=== PATIENT | female | born 1930 | race African-American/Black ===

== ENCOUNTER → 2017-06-08 | Outpatient (CLI) | payer MEDICARE ==
[2015-11-10 17:45] VITALS: BP 115/61
[~2017-06-08] MED LIST: ALPR0.25 PO; ALPR0.254 PO; ASPI-482 PO; BUTA1CAP57 PO; FERR-26 PO; FURO-68 PO; FURO40TA4 PO; GABA-586 PO; LORA10TA68 PO; MELO15TA6 PO; OMEP40CA5 PO; OXYC-323 PO; PANT40TA3 PO; PANT40TA5 PO; POTASSIUM CHLO10 MEQ PO; ROPI1TAB PO; SPIR1TAB PO; SPIR25TA3 PO; TRAM50TA PO; WARF-78 PO
--- NOTE | 2017-06-08 13:18 | RAD ---
DATE: 06/08/2017 EXAM: DIGITAL SCREEN BILAT W/CAD HISTORY: Screening Mammogram COMPARISON: Multiple prior examinations including 06/01/2016, 05/24/2015, 01/31/2013, 03/08/2012 This study was interpreted with the benefit of Computerized Aided Detection (CAD). The breast parenchyma shows scattered fibroglandular densities. Breast parenchyma level B. FINDINGS: Bilateral digital 2-D CC and MLO views. No suspicious mass, calcification or architectural distortion. No significant change from prior examination IMPRESSION: No mammographic evidence of malignancy. Recommend routine screening mammogram in 12 months. BI-RADS CATEGORY: 1 NEGATIVE RECOMMENDED FOLLOW-UP: 12M 12 MONTH FOLLOW-UP PQRS compliance statement: Patient information was entered into a reminder system with a target due date May 2018 for the next mammogram. Mammography is a sensitive method for finding small breast cancers, but it does not detect them all and is not a substitute for careful clinical examination. A negative mammogram does not negate a clinically suspicious finding and should not result in delay in biopsying a clinically suspicious abnormality. "Our facility is accredited by the [employer] Mammography Program."
== END | disposition home or self-care (01) ==
LOC: MAMMO 12:31
PROVIDERS: ATTEND Internal Medicine
DX: Z12.31 Encounter for screening mammogram for malignant neoplasm of breast (principal)
CPT/HCPCS: G0202; 77067

== ENCOUNTER → 2017-08-06 | Outpatient (CLI) | payer MEDICARE | END | disposition home or self-care (01) | LOC: US 16:03 | DX: M79.662 Pain in left lower leg (principal) | CPT/HCPCS: 93926 ==

== ENCOUNTER → 2017-11-26 | Outpatient (CLI) | payer MEDICARE | END | disposition home or self-care (01) | LOC: US 10:46 | DX: K76.89 Other specified diseases of liver (principal); I10 Essential (primary) hypertension | CPT/HCPCS: 76700 ==

== ENCOUNTER 2018-07-27 10:29 | Emergency (ER) | payer MEDICARE ==
[~2018-07-27] VITALS: Ht 165.1 cm; Wt 77.6 kg
[~2018-07-27 10:29] MED LIST changes: -FERR-26 PO; +FERR325T14 PO; -GABA-586 PO; +GABA300C18 PO; -OXYC-323 PO; +OXYC1TAB15 PO; +POTA10TA12 PO; -POTASSIUM CHLO10 MEQ PO; -SPIR25TA3 PO; +SPIR25TA5 PO
[2018-07-27 11:59] LABS: ALBUMIN 3.2 g/dL (3.4-5.0); ALBUMIN/GLOBULIN RATIO 0.7 (1.0-1.7); CALCIUM 9.1 mg/dL (8.5-10.1); CREATININE 1.3 mg/dL (0.6-1.0); GFR 47.1; TOTAL BILIRUBIN 0.9 mg/dL (0.2-1.0); TOTAL PROTEIN 7.6 g/dL (6.4-8.2)
[2018-07-27 12:00] LABS: BASO # 0.1 x10^3/uL (0.0-0.2); BASO % 1 % (0-3); EOS # 0.1 x10^3/uL (0.0-0.7); EOS % 1 % (0-3); HEMATOCRIT 32.8 % (36.0-47.0); HEMOGLOBIN 10.9 g/dL (12.0-15.5); LYMPH # 1.3 x10^3/uL (1.0-4.8); LYMPH % 12 % (24-48); MEAN CORPUSCULAR HEMOGLOBIN 24 pg (25-35); MEAN CORPUSCULAR HGB CONC 33 g/dL (31-37); MEAN CORPUSCULAR VOLUME 72 fL (79-100); MONO # 1.4 x10^3/uL (0.0-1.1); MONO % 14 % (0-9); NEUT # 7.8 x10^3uL (1.8-7.7); NEUT % 73 % (31-73); PLATELET COUNT 282 x10^3/uL (140-400); RED BLOOD COUNT 4.58 x10^6/uL (3.50-5.40); WHITE BLOOD COUNT 10.7 x10^3/uL (4.0-11.0)
--- NOTE | 2018-07-27 12:58 | RAD ---
CT HEAD AND CERVICAL SPINE WO Indication: head and neck pain, prior sent, no known injury Exposure: One or more of the following individualized dose reduction techniques were utilized for this examination: 1. Automated exposure control 2. Adjustment of the mA and/or kV according to patient size 3. Use of iterative reconstruction technique. Comparison: Images are available from a head CT of June 19, 2011 Contrast: None HEAD: Posterior fossa is unremarkable. No evidence of acute intracranial hemorrhage or abnormal extra-axial fluid collection. No evidence of mass effect or midline shift. Ventricles are symmetric in size and configuration. Horne-white matter distinction is intact. Visualized orbits are unremarkable. Visualized paranasal sinuses and mastoids are clear. No acute calvarial abnormality. Impression:Negative for acute intracranial hemorrhage or mass effect. CERVICAL SPINE: C1 ring: Intact Cervico-occipital junction: Intact C1-C2 relationship: Within normal limits Severe degenerative spondylosis with complete loss of intervertebral disc spaces and posterior osteophytes and spurring. There is bilateral neural foraminal stenosis at multiple levels. There is at least mild spinal canal narrowing greatest at C3-C4. No evidence of a definite acute fracture but detection could be limited by the severe degenerative changes. No evidence of facet joint displacement. No evidence of traumatic subluxation. Prevertebral soft tissues: No significant swelling or hematoma Thyroid: Heterogeneous. Lung apices: Clear Impression: Severe degenerative spondylosis with stenosis. No definite acute fracture, but detection could be made difficult by the background degenerative changes. Electronically signed by: José Antonio Goins MD (07/27/2018 12:54 PM) [facility]
[2018-07-27 13:12] LABS: BILIRUBIN,URINE NEGATIVE (NEG); CLARITY,URINE CLEAR; COLOR,URINE YELLOW; NITRITE,URINE NEGATIVE (NEG); PH,URINE 6.5; PROTEIN,URINE NEGATIVE (NEG-TRACE)
[2018-07-27 13:25] LABS: HYALINE CASTS, URINE MODERATE /HPF
[2018-07-27 13:26] LABS: AMORPHOUS SEDIMENT,UR PRESENT /HPF; BACTERIA,URINE 0 /HPF (0-FEW); RBC,URINE 20-40 /HPF (0-2); SQUAMOUS EPITHELIAL CELL,UR MOD /LPF; WBC,URINE 0 /HPF (0-4)
--- NOTE | 2018-07-27 13:52 | PHYS DOC ---
Past Medical History Past Medical History: Arthritis, Hypertension Past Surgical History: Hysterectomy Additional Past Surgical Histo: HERNIA REPAIR Adult General Chief Complaint Chief Complaint: SHOUDLER HPI HPI Patient is a 87 year old [f__sex] who presents with [] Review of Systems Review of Systems Constitutional: Denies fever or chills [] Eyes: Denies change in visual acuity, redness, or eye pain [] HENT: Denies nasal congestion or sore throat [] Respiratory: Denies cough or shortness of breath [] Cardiovascular: No additional information not addressed in HPI [] GI: Denies abdominal pain, nausea, vomiting, bloody stools or diarrhea [] : Denies dysuria or hematuria [] Musculoskeletal: Denies back pain or joint pain [] Integument: Denies rash or skin lesions [] Neurologic: Denies headache, focal weakness or sensory changes [] Endocrine: Denies polyuria or polydipsia [] All other systems were reviewed and found to be within normal limits, except as documented in this note. Current Medications Current Medications Current Medications Medications (Trade) Dose Ordered Sig/Ambrosoi Start Time Stop Time Status Last Admin Dose Admin Potassium Chloride (Klor-Con) 40 meq 1X ONCE 07/27/18 14:15 07/27/18 14:16 DC 07/27/18 14:33 40 MEQ Allergies Allergies Allergies Coded Allergies Type Severity Reaction Last Updated Verified Penicillins Allergy Intermediate 11/12/15 Yes Sulfa (Sulfonamide Antibiotics) Allergy Intermediate 11/12/15 Yes aspirin Allergy Intermediate 11/12/15 Yes chlorhexidine Adverse Reaction Severe Rash 11/12/15 Yes Physical Exam Physical Exam Constitutional: Well developed, well nourished, no acute distress, non-toxic appearance. [] HENT: Normocephalic, atraumatic, bilateral external ears normal, oropharynx moist, no oral exudates, nose normal. [] Eyes: PERRLA, EOMI, conjunctiva normal, no discharge. [] Neck: Normal range of motion, no tenderness, supple, no stridor. [] Cardiovascular:Heart rate regular rhythm, no murmur [] Lungs & Thorax: Bilateral breath sounds clear to auscultation [] Abdomen: Bowel sounds normal, soft, no tenderness, no masses, no pulsatile masses. [] Skin: Warm, dry, no erythema, no rash. [] Back: No tenderness, no CVA tenderness. [] Extremities: No tenderness, no cyanosis, no clubbing, ROM intact, no edema. [] Neurologic: Alert and oriented X 3, normal motor function, normal sensory function, no focal deficits noted. [] Psychologic: Affect normal, judgement normal, mood normal. [] Current Patient Data Vital Signs Vital Signs Date Time Temp Pulse Resp B/P (MAP) Pulse Ox O2 Delivery O2 Flow Rate FiO2 07/27/18 11:38 73 149/69 (95) 99 Room Air 07/27/18 10:45 99.0 18 99.0 Lab Values Laboratory Tests Test 07/27/18 11:36 07/27/18 13:00 White Blood Count 10.7 x10^3/uL (4.0-11.0) Red Blood Count 4.58 x10^6/uL (3.50-5.40) Hemoglobin 10.9 g/dL (12.0-15.5) L Hematocrit 32.8 % (36.0-47.0) L Mean Corpuscular Volume 72 fL (79-100) L Mean Corpuscular Hemoglobin 24 pg (25-35) L Mean Corpuscular Hemoglobin Concent 33 g/dL (31-37) Red Cell Distribution Width 15.0 % (11.5-14.5) H Platelet Count 282 x10^3/uL (140-400) Neutrophils (%) (Auto) 73 % (31-73) Lymphocytes (%) (Auto) 12 % (24-48) L Monocytes (%) (Auto) 14 % (0-9) H Eosinophils (%) (Auto) 1 % (0-3) Basophils (%) (Auto) 1 % (0-3) Neutrophils # (Auto) 7.8 x10^3uL (1.8-7.7) H Lymphocytes # (Auto) 1.3 x10^3/uL (1.0-4.8) Monocytes # (Auto) 1.4 x10^3/uL (0.0-1.1) H Eosinophils # (Auto) 0.1 x10^3/uL (0.0-0.7) Basophils # (Auto) 0.1 x10^3/uL (0.0-0.2) Platelet Estimate Adequate (ADEQUATE) Hypochromasia Present Microcytosis Present Sodium Level 137 mmol/L (136-145) Potassium Level 3.0 mmol/L (3.5-5.1) L Chloride Level 94 mmol/L (98-107) L Carbon Dioxide Level 36 mmol/L (21-32) H Anion Gap 7 (6-14) Blood Urea Nitrogen 15 mg/dL (7-20) Creatinine 1.3 mg/dL (0.6-1.0) H Estimated GFR (Cockcroft-Gault) 47.1 BUN/Creatinine Ratio 12 (6-20) Glucose Level 114 mg/dL (70-99) H Calcium Level 9.1 mg/dL (8.5-10.1) Total Bilirubin 0.9 mg/dL (0.2-1.0) Aspartate Amino Transferase (AST) 17 U/L (15-37) Alanine Aminotransferase (ALT) 9 U/L (14-59) L Alkaline Phosphatase 68 U/L (46-116) Total Protein 7.6 g/dL (6.4-8.2) Albumin 3.2 g/dL (3.4-5.0) L Albumin/Globulin Ratio 0.7 (1.0-1.7) L Urine Collection Type U cath Urine Color Yellow Urine Clarity Clear Urine pH 6.5 Urine Specific [place] 1.020 Urine Protein Negative mg/dL (NEG-TRACE) Urine Glucose (UA) Negative mg/dL (NEG) Urine Ketones (Stick) Negative mg/dL (NEG) Urine Blood Moderate (NEG) Urine Nitrite Negative (NEG) Urine Bilirubin Negative (NEG) Urine Urobilinogen Dipstick 1.0 mg/dL (0.2 mg/dL) Urine Leukocyte Esterase Negative (NEG) Urine RBC 20-40 /HPF (0-2) Urine WBC 0 /HPF (0-4) Urine Squamous Epithelial Cells Mod /LPF Urine Amorphous Sediment Present /HPF Urine Bacteria 0 /HPF (0-FEW) Urine Hyaline Casts Moderate /HPF Urine Mucus Marked /LPF Laboratory Tests 07/27/18 11:36 Laboratory Tests 07/27/18 11:36 EKG EKG [] Radiology/Procedures Radiology/Procedures []PATIENT: ALEX PERSAUDOUNT: [id number]#: [id number] : 1930 LOCATION: ER AGE: 87 SEX: F EXAM STATUS: REG ER ORD. PHYSICIAN: PHILLY VIZCARRA APRN REASON: neck pain, headaches, parasthesias PROCEDURE: CT HEAD AND CERVICAL SPINE WO CT HEAD AND CERVICAL SPINE WO Indication: head and neck pain, prior sent, no known injury Exposure: One or more of the following individualized dose reduction techniques were utilized for this examination: 1. Automated exposure control 2. Adjustment of the mA and/or kV according to patient size 3. Use of iterative reconstruction technique. Comparison: Images are available from a head CT of June 19, 2011 Contrast: None HEAD: Posterior fossa is unremarkable. No evidence of acute intracranial hemorrhage or abnormal extra-axial fluid collection. No evidence of mass effect or midline shift. Ventricles are symmetric in size and configuration. Horne-white matter distinction is intact. Visualized orbits are unremarkable. Visualized paranasal sinuses and mastoids are clear. No acute calvarial abnormality. Impression:Negative for acute intracranial hemorrhage or mass effect. CERVICAL SPINE: C1 ring: Intact Cervico-occipital junction: Intact C1-C2 relationship: Within normal limits Severe degenerative spondylosis with complete loss of intervertebral disc spaces and posterior osteophytes and spurring. There is bilateral neural foraminal stenosis at multiple levels. There is at least mild spinal canal narrowing greatest at C3-C4. No evidence of a definite acute fracture but detection could be limited by the severe degenerative changes. No evidence of facet joint displacement. No evidence of traumatic subluxation. Prevertebral soft tissues: No significant swelling or hematoma Thyroid: Heterogeneous. Lung apices: Clear Impression: Severe degenerative spondylosis with stenosis. No definite acute fracture, but detection could be made difficult by the background degenerative changes. Electronically signed by: José Antonio Goins MD (07/27/2018 12:54 PM) [facility] DICTATED and SIGNED BY: JOSÉ ANTONIO GOINS MD DATE: 07/27/18 1247 Course & Med Decision Making Course & Med Decision Making Pertinent Labs and Imaging studies reviewed. (See chart for details) [] Dragon Disclaimer Dragon Disclaimer This electronic medical record was generated, in whole or in part, using a voice recognition dictation system. Departure Departure Impression: Primary Impression: Muscle strain Disposition: 01 HOME, SELF-CARE Condition: STABLE Referrals: ZACHARIAH GUTHRIE MD (PCP) Patient Instructions: Muscle Strain Additional Instructions: Take the medication as prescribed. Do not drive or operate heavy machinery while taking this medication. This medication might make you very drowsy. Follow -up with your primary care provider for recheck in 3 days if not improving or return to the emergency department immediately if worsening. Scripts Hydrocodone/Apap 5-325 (NORCO 5-325 TABLET) 1 Each Tablet 1 TAB PO PRN Q6HRS PRN for PAIN, #14 TAB 0 Refills Prov: PHILLY VIZCARRA APRN 07/27/18 Cyclobenzaprine Hcl (CYCLOBENZAPRINE HCL) 5 Mg Tablet 1 TAB PO QHS for muscle spasms, #30 TAB Prov: PHILLY VIZCARRA APRN 07/27/18 PHILLY VIZCARRA APRN Jul 27, 2018 13:52
[2018-07-27 13:54] LABS: PLT ESTIMATE ADEQUATE (ADEQUATE)
[2018-07-27 13:55] LABS: HYPOCHROMIA PRESENT; MICROCYTOSIS PRESENT
[2018-07-27] MEDS ORDERED: POTASSIUM CHLORIDE 20 MEQ TABLET.ER. PO ONE (14:15)
[2018-07-27] MEDS ORDERED: HYDR-3164 PO (14:58)
[2018-07-27] MEDS ORDERED: CYCL5TAB PO (14:58)
[2018-07-27 15:00] VITALS: BP 142/64
== END 2018-07-27 15:17 | disposition home or self-care (01) ==
LOC: ER 10:29
DX: S16.1XXA Strain of muscle, fascia and tendon at neck level, initial encounter (principal); R20.2 Paresthesia of skin; I10 Essential (primary) hypertension; R51 Headache; M25.511 Pain in right shoulder; M25.512 Pain in left shoulder; Z88.0 Allergy status to penicillin; Z88.2 Allergy status to sulfonamides; Z88.6 Allergy status to analgesic agent; Z88.8 Allergy status to other drugs, medicaments and biological substances; X58.XXXA Exposure to other specified factors, initial encounter; Y93.89 Activity, other specified; Y92.89 Other specified places as the place of occurrence of the external cause; Y99.8 Other external cause status
CPT/HCPCS: 36415; 70450; 72125; 80053; 81001; 85025; 99284-25

== ENCOUNTER → 2019-05-26 | Day surgery (SDC) | payer MEDICARE ==
[~2019-05-26] MED LIST changes: +CYCL5TAB PO; +HYDR-3164 PO; +IV RINGERS,LACTATED 1000ML 1,000 ML IV ONE; +OMEP40CA45 PO; -OMEP40CA5 PO; -PANT40TA3 PO; -PANT40TA5 PO; +PANT40TA77 PO; +PROPOFOL 20 ML IV ONE
--- NOTE | 2019-05-26 14:25 | PDOC4 ---
PROCEDURE Procedure EGD/biopsies Indication: dyspepsia Meds: per anesthesia Findings: E--Grade A eitis at 34cm. G--Linear erythema, antrum. Biopsies taken. D--normal to second portion. Candice. well. IMP: GERD non-specific antral erythema REC; Trial of PPI. Await biopsies F/u with me in 2 weeks. Resume other meds, diet. JAZMIN JORGENSEN MD May 26, 2019 14:25
[2019-05-26 14:49] VITALS: BP 146/82
--- NOTE | 2019-05-27 16:06 | PATHOLOGY ---
[facility] Accession Number: [id number] . 01 Material submitted: . stomach - ANTRUM BX . 01 Clinical history: . Abdominal pain . 02 Diagnosis: Antrum, biopsy: - Mild chronic inactive gastritis. - An Helicobacter pylori immunoperoxidase stain is negative (A1; appropriate control) (MAP:[facility] 05/27/2019) [facility] 05/27/2019 1319 Local . 02 Electronically signed: . José Antonio Veloz MD, Pathologist NPI- [id number] . 01 Gross description: . Received in formalin labeled "Brown, Silva, antrum BX," are 2 segments of mayo soft tissue measuring 1.2 x 0.3 x 0.2 cm in aggregate dimensions and ranging from 0.6 to 0.7 cm in maximum dimension. The specimen is submitted entirely in cassette A1. (TSD; 05/26/2019) TOB/TOB 05/26/2019 2050 Local . 02 Pathologist provided ICD-10: K29.50 . 02 CPT . 607663, F33639 Specimen Comment: A courtesy copy of this report has been sent to [phone], [phone] Specimen Comment: [id number] Specimen Comment: Report sent to / DR GUTHRIE Performed at: 01 [facility] [address], [place], [place] [id number] MD Ozzie Matthew MD Phone: [phone] Performed at: 02 [facility] [address] [place], [place] [id number] MD Jimmy Bello MD Phone: [phone]
== END ==
LOC: ENDOS 13:17
PROVIDERS: ATTEND Internal Medicine Gastroenterology
DX: R10.13 Epigastric pain (principal); K29.50 Unspecified chronic gastritis without bleeding; K21.0 Gastro-esophageal reflux disease with esophagitis; F41.9 Anxiety disorder, unspecified; I10 Essential (primary) hypertension; D64.9 Anemia, unspecified; Z88.6 Allergy status to analgesic agent; Z88.1 Allergy status to other antibiotic agents; Z88.0 Allergy status to penicillin; Z88.8 Allergy status to other drugs, medicaments and biological substances; Z86.010 Personal history of colon polyps; Z90.710 Acquired absence of both cervix and uterus; Z96.653 Presence of artificial knee joint, bilateral
CPT/HCPCS: 43239; 88305; 88342; J2704

== ENCOUNTER 2019-05-27 11:16 | Emergency (ER) | payer MEDICARE ==
[~2019-05-27] VITALS: Ht 165.1 cm; Wt 76.2 kg
[~2019-05-27 11:16] MED LIST changes: -IV RINGERS,LACTATED 1000ML 1,000 ML IV ONE; -PROPOFOL 20 ML IV ONE
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
--- NOTE | 2019-05-27 12:14 | RAD ---
CT HEAD WO CONTRAST History: Trauma. Pain. Comparison: July 27, 2018 Technique: Noncontrast CT imaging was performed of the head. Exposure: One or more of the following individualized dose reduction techniques were utilized for this examination: 1. Automated exposure control 2. Adjustment of the mA and/or kV according to patient size 3. Use of iterative reconstruction technique. Findings: No intracranial hemorrhage. No mass effect. No hydrocephalus. Extra-axial spaces are unremarkable. Anterior scalp soft tissue swelling and hematoma. Right posterior scalp lipoma, unchanged. Imaged orbits are unremarkable. Imaged paranasal sinuses and mastoid air cells are clear. No acute calvarial fracture. C1-C2 degenerative changes with posterior pannus formation contributing to narrowing at the cervical medullary junction, unchanged. Impression: 1. No acute intracranial abnormality. 2. Anterior scalp soft tissue swelling and hematoma. Electronically signed by: Lorenzo Echeverria DO (05/27/2019 12:11 PM) [id number]
[2019-05-27 12:29] VITALS: BP 160/76
== END 2019-05-27 12:41 | disposition home or self-care (01) ==
LOC: ER 11:16
DX: S00.83XA Contusion of other part of head, initial encounter (principal); W06.XXXA Fall from bed, initial encounter; Y93.89 Activity, other specified; Y92.89 Other specified places as the place of occurrence of the external cause; Y99.8 Other external cause status
CPT/HCPCS: 70450; 99284-25

== ENCOUNTER → 2020-01-29 | Outpatient (CLI) | payer MEDICARE ==
[~2020-01-29] MED LIST changes: -WARF-78 PO; +WARF5TAB2 PO
--- NOTE | 2020-01-29 10:58 | RAD ---
EXAM: CT ABDOMEN/PELVIS WITHOUT CONTRAST. HISTORY: Left abdominal pain. TECHNIQUE: Computed tomography of the abdomen and pelvis was performed without intravenous contrast. One or more of the following individualized dose reduction techniques were utilized for this examination: 1. Automated exposure control. 2. Adjustment of the mA and/or kV according to patient size. 3. Use of iterative reconstruction technique. COMPARISON: 03/30/2014. FINDINGS: Lung windows through the visualized portions of the bases reveal aortic valve and coronary calcifications. Bone windows reveal no suspicious lesions. There is grade 1 anterolisthesis at L4-5 from facet osteoarthritis. Central canal stenosis appears moderate at this level. Small hypoattenuating hepatic lesions are stable chronically and likely reflect cysts. One in segment IVb measures 1.5 x 1.3 cm. There are calcified granulomas in the liver and spleen. The pancreas, adrenal glands and gallbladder are unremarkable. Tiny hyperattenuating nodules within the kidneys measure up to 6 mm posteriorly on the left. These likely reflect proteinaceous/hemorrhagic cysts and have correlates on remote exams. There is no hydronephrosis. There are no renal or ureteral calculi. There is no evidence of appendicitis. The uterus is surgically absent. There is no small bowel obstruction. There are no pathologically enlarged lymph nodes. There are changes of mesh repair of the anterior abdominal wall without recurrent hernia. IMPRESSION: 1. No cause for acute pain is identified. 2. Aortic valve calcifications. Correlate for aortic stenosis. Electronically signed by: Shahid Valdez MD (01/29/2020 10:55 AM) [id number]
== END | disposition home or self-care (01) ==
LOC: CT 09:51
PROVIDERS: ATTEND Internal Medicine
DX: I35.8 Other nonrheumatic aortic valve disorders (principal); I25.10 Atherosclerotic heart disease of native coronary artery without angina pectoris; M47.816 Spondylosis without myelopathy or radiculopathy, lumbar region; R10.9 Unspecified abdominal pain; D73.89 Other diseases of spleen; Z90.710 Acquired absence of both cervix and uterus
CPT/HCPCS: 74176

== ENCOUNTER → 2020-02-23 | Outpatient (CLI) | payer MEDICARE ==
--- NOTE | 2020-02-23 11:10 | RAD ---
T-spine 2 views INDICATION: Mid and low back pain FINDINGS: Mild levoscoliosis of the thoracic spine, apex at T12. Bones are demineralized and show multilevel mild endplate degenerative changes, most conspicuous at T8-T9. No fracture or aggressive osseous lesions are seen. Discs are narrowed throughout the thoracic spine. Paraspinal soft tissues unremarkable. IMPRESSION: Multilevel thoracic spinal degenerative changes. No fracture, malalignment or aggressive osseous lesions seen. L-spine 2 views INDICATION: Mid and low back pain FINDINGS: Upright frontal and lateral views of the lumbar spine show 5 lumbar type vertebrae with grade 1 anterolisthesis of L4 on L5. There is mild rightward convexity scoliotic curvature of the lumbar spine, apex at L3. The bones are demineralized but no fracture or aggressive osseous lesions are seen. Multilevel facet hypertrophic changes are present. Discs show narrowing at L4-L5 and at L5-S1. Sacroiliac joints appear narrowed. Bilateral medial hip joint space narrowing is also noted. Soft tissues are unremarkable. IMPRESSION: Lumbar spinal degenerative spondylosis primarily involving the facets and at the discs of L4-L5 and L5-S1. No fracture or aggressive osseous lesions. Electronically signed by: Cris Arcos MD (02/23/2020 11:07 AM) [id number]
== END | disposition home or self-care (01) ==
LOC: RAD 09:43
PROVIDERS: ATTEND Internal Medicine
DX: M47.814 Spondylosis without myelopathy or radiculopathy, thoracic region (principal); M47.817 Spondylosis without myelopathy or radiculopathy, lumbosacral region; M41.84 Other forms of scoliosis, thoracic region; M48.04 Spinal stenosis, thoracic region; M43.16 Spondylolisthesis, lumbar region; M41.86 Other forms of scoliosis, lumbar region; M48.07 Spinal stenosis, lumbosacral region; M46.96 Unspecified inflammatory spondylopathy, lumbar region
CPT/HCPCS: 72072; 72100

== ENCOUNTER → 2020-05-07 | Outpatient (CLI) | payer MEDICARE ==
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
== END ==
LOC: KCIC 09:05
PROVIDERS: ATTEND Internal Medicine
DX: M19.031 Primary osteoarthritis, right wrist (principal); W19.XXXA Unspecified fall, initial encounter
CPT/HCPCS: 73110

== ENCOUNTER → 2021-08-01 | Outpatient (CLI) | payer MEDICARE ==
[~2021-08-01] MED LIST changes: -OMEP40CA45 PO; +OMEP40CA7 PO
--- NOTE | 2021-08-01 16:14 | KCIC ---
EXAM: Bilateral knees, 3 views. HISTORY: Pain. COMPARISON: 11/09/2015. FINDINGS: 3 views of both knees are obtained. There are bilateral knee arthroplasties. There is no ev idence of arthroplasty loosening or periprosthetic fracture. There is trace bilateral joint fluid. IMPRESSION: Bilateral knee arthroplasties in expected position. Trace bilateral joint fluid. Electronically signed by: Mahsa Yates MD (08/01/2021 4:12 PM) [id number]
== END ==
LOC: KCIC 15:46
PROVIDERS: ATTEND Physical Medicine & Rehabilitation
DX: M17.0 Bilateral primary osteoarthritis of knee (principal); Z96.653 Presence of artificial knee joint, bilateral
CPT/HCPCS: 73562-50

== ENCOUNTER → 2021-09-28 | Outpatient (CLI) | payer MEDICARE ==
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
== END ==
LOC: KCIC 15:40
PROVIDERS: ATTEND Internal Medicine
DX: M25.462 Effusion, left knee (principal); Z96.652 Presence of left artificial knee joint
CPT/HCPCS: 73560